=== PATIENT | male | born 1980 | race African-American/Black ===

== ENCOUNTER 2022-09-30 12:05 | Inpatient (IN) | payer OTHER ==
[2022-09-30] MEDS ORDERED: Ketorolac Tromethamine 30 MG/ML VIAL ONE (12:35)
[2022-09-30] MEDS ORDERED: Ondansetron PF 4 MG/2 ML Vial ONE (13:40)
[2022-09-30] MEDS ORDERED: Morphine 4 MG/ML VIAL ONE ×2 (13:40→15:42)
[2022-09-30] MEDS ORDERED: Iopamidol 300 61% 100 ML VIAL FS ONE (14:21)
[2022-09-30 14:26] LABS: #Basophils 0.1 10x3/uL (0.0-0.2); #Eosinphils 0.3 10x3/uL (0.0-0.5); #Monocytes 0.6 10x3/uL (0.0-1.1); #Neutrophils 5.2 10x3/uL (1.5-8.4); %Basophils 0.8 % (0.0-2.0); %Eosinophils 3.6 % (0.0-6.0); %Lymphocytes 27.8 % (18.0-47.0); %Monocytes 6.6 % (0.0-10.0); %Neutrophils 60.9 % (40.0-75.0); Hemoglobin 15.2 g/dL (13.5-17.5); Mean Corpuscular HGB CONC 32.4 g/dL (32.0-36.0); Mean Corpuscular Hemoglobin 25.7 pg (27.0-33.0); Mean Corpuscular Volume 79.4 fl (81.2-95.1); Mean Platelet Volume 10.2 fl (7.4-10.4); Platelet Count 286 10x3/uL (150-450); RBC Distribution Width 14.4 % (11.5-14.5); Red Blood Cell (RBC) Count 5.91 10x6/uL (4.32-5.72); White Blood Cell (WBC) Count 8.6 10x3/uL (3.5-10.5)
[2022-09-30 14:41] LABS: ALT (SGPT) 55 U/L (8-55); AST (SGOT) 30 U/L (5-34); Albumin 4.1 g/dL (3.5-5.0); Alkaline Phosphatase 71 U/L (40-110); Anion Gap 19 mmol/L (10-20); BUN (Urea Nitrogen) 9 mg/dL (8.9-20.6); Bilirubin, Total 0.2 mg/dL (0.2-1.2); Calc. Creatinine Clearance 0 mL/min (70-130); Calcium 9.3 mg/dL (7.8-10.44); Carbon Dioxide 22 mmol/L (22-29); Chloride 104 mmol/L (98-107); Estimated GFR 102; Globulin 3.3 g/dL (2.4-3.5); Glucose 105 mg/dL (70-105); Lipase 35 U/L (8-78); Potassium 4.7 mmol/L (3.5-5.1); Protein, Total 7.4 g/dL (6.0-8.3); Sodium 140 mmol/L (136-145)
[2022-09-30] MEDS ORDERED: Metoclopramide HCl 10 MG/2 ML VIAL IVP PRN (15:39)
[2022-09-30] MEDS ORDERED: Dextrose 5 % And 0.9 % NaCl 1,000 ML IV SCH (16:00)
[2022-09-30 17:24] VITALS: BMI 29.7
[2022-09-30] MEDS ORDERED: Morphine 4 MG/ML VIAL SLOW IVP SCH (18:00)
[2022-09-30] MEDS ORDERED: Pantoprazole 40 MG VIAL IVP SCH (18:00)
[2022-09-30] MEDS: Sodium Chloride 0.9% 1,000 ML IV SCH (18:31)
[2022-09-30 20:19] LABS: Bilirubin Neg (Negative); Blood, Urine Negative (Negative); Glucose, Urine (Dipstick) Normal (Negative); Ketone, Urine Negative (Negative); Leukocyte 25 (Negative); Nitrite Negative (Negative); Protein, Urine (Dipstick) Negative (Neg-Trace); Specific Gravity, Urine 1.005 (1.005-1.030); Urobilinogen Normal mg/dL (Less than 2)
[2022-09-30 20:20] LABS: Clarity Clear (Clear)
[2022-09-30 20:42] LABS: Bacteria/HPF None Seen HPF (None Seen); CAUTI Indications for Culture Pelvic or flank pain; RBC/HPF None Seen HPF (0-3); Squamous Epithelial None Seen HPF (0-3); WBC/HPF None Seen HPF (0-3)
[2022-09-30 20:44] LABS: Urine Culture Reflex No No
[2022-09-30] MEDS ORDERED: Senokot S 8.6-50 MG TAB PO SCH (21:00)
[2022-09-30] MEDS: Ketorolac Tromethamine 30 MG/ML VIAL IVP PRN (21:14)
[2022-09-30] MEDS: Morphine 4 MG/ML VIAL SLOW IVP PRN (23:03)
[2022-10-01] MEDS: Ondansetron PF 4 MG/2 ML Vial IVP PRN ×2 (00:59→21:53)
[2022-10-01] MEDS ORDERED: Morphine 2 MG/ML VIAL SLOW IVP SCH (01:15)
[2022-10-01] MEDS: Sodium Chloride 0.9% 1,000 ML IV SCH ×3 (01:22→17:36)
[2022-10-01] MEDS: Morphine 4 MG/ML VIAL SLOW IVP PRN ×5 (03:01→21:49)
[2022-10-01 05:27] LABS: #Basophils 0.1 10x3/uL (0.0-0.2); #Eosinphils 0.1 10x3/uL (0.0-0.5); #Monocytes 0.6 10x3/uL (0.0-1.1); #Neutrophils 8.7 10x3/uL (1.5-8.4); %Basophils 0.5 % (0.0-2.0); %Eosinophils 0.6 % (0.0-6.0); %Lymphocytes 14.2 % (18.0-47.0); %Monocytes 5.1 % (0.0-10.0); %Neutrophils 79.2 % (40.0-75.0); Hemoglobin 15.8 g/dL (13.5-17.5); Mean Corpuscular HGB CONC 32.4 g/dL (32.0-36.0); Mean Corpuscular Hemoglobin 25.4 pg (27.0-33.0); Mean Corpuscular Volume 78.5 fl (81.2-95.1); Mean Platelet Volume 10.5 fl (7.4-10.4); Platelet Count 317 10x3/uL (150-450); RBC Distribution Width 14.6 % (11.5-14.5); Red Blood Cell (RBC) Count 6.22 10x6/uL (4.32-5.72)
[2022-10-01 05:52] LABS: ALT (SGPT) 46 U/L (8-55); AST (SGOT) 25 U/L (5-34); Albumin 3.9 g/dL (3.5-5.0); Alkaline Phosphatase 75 U/L (40-110); Anion Gap 17 mmol/L (10-20)
[2022-10-01 05:53] LABS: BUN (Urea Nitrogen) 8 mg/dL (8.9-20.6); Bilirubin, Total 0.3 mg/dL (0.2-1.2); Calc. Creatinine Clearance 142 mL/min (70-130); Carbon Dioxide 23 mmol/L (22-29); Chloride 103 mmol/L (98-107); Estimated GFR 98; Globulin 3.3 g/dL (2.4-3.5); Glucose 110 mg/dL (70-105); Potassium 4.7 mmol/L (3.5-5.1); Protein, Total 7.2 g/dL (6.0-8.3); Sodium 138 mmol/L (136-145)
[2022-10-01] MEDS: Ketorolac Tromethamine 30 MG/ML VIAL IVP PRN ×2 (09:20→17:36)
[2022-10-01] MEDS: Pantoprazole 40 MG VIAL IVP SCH (09:33)
[2022-10-02] MEDS: Ketorolac Tromethamine 30 MG/ML VIAL IVP PRN ×3 (00:40→13:11)
[2022-10-02] MEDS: Sodium Chloride 0.9% 1,000 ML IV SCH ×5 (01:48→21:56)
[2022-10-02] MEDS: Morphine 4 MG/ML VIAL SLOW IVP PRN ×4 (03:24→21:56)
[2022-10-02 04:40] LABS: #Basophils 0.1 10x3/uL (0.0-0.2); #Eosinphils 0.2 10x3/uL (0.0-0.5); #Monocytes 0.8 10x3/uL (0.0-1.1); #Neutrophils 5.9 10x3/uL (1.5-8.4); %Basophils 0.6 % (0.0-2.0); %Eosinophils 2.3 % (0.0-6.0); %Lymphocytes 21.3 % (18.0-47.0); %Monocytes 9.3 % (0.0-10.0); %Neutrophils 66.2 % (40.0-75.0); Hemoglobin 15.6 g/dL (13.5-17.5); Mean Corpuscular HGB CONC 32.6 g/dL (32.0-36.0); Mean Corpuscular Hemoglobin 25.4 pg (27.0-33.0); Mean Platelet Volume 10.1 fl (7.4-10.4); Platelet Count 318 10x3/uL (150-450); RBC Distribution Width 13.7 % (11.5-14.5); Red Blood Cell (RBC) Count 6.14 10x6/uL (4.32-5.72); White Blood Cell (WBC) Count 8.8 10x3/uL (3.5-10.5)
[2022-10-02 04:42] LABS: Albumin 3.9 g/dL (3.5-5.0); Anion Gap 14 mmol/L (10-20); BUN (Urea Nitrogen) 10 mg/dL (8.9-20.6); Bilirubin, Total 0.4 mg/dL (0.2-1.2); Calc. Creatinine Clearance 128 mL/min (70-130); Calcium 9.3 mg/dL (7.8-10.44); Carbon Dioxide 26 mmol/L (22-29); Chloride 106 mmol/L (98-107); Estimated GFR 86; Glucose 106 mg/dL (70-105); Potassium 4.1 mmol/L (3.5-5.1); Protein, Total 6.7 g/dL (6.0-8.3); Sodium 142 mmol/L (136-145)
[2022-10-02 04:43] LABS: ALT (SGPT) 35 U/L (8-55); AST (SGOT) 14 U/L (5-34); Alkaline Phosphatase 68 U/L (40-110); Globulin 2.8 g/dL (2.4-3.5)
[2022-10-02] MEDS: Ondansetron PF 4 MG/2 ML Vial IVP PRN ×2 (08:30→17:42)
[2022-10-02] MEDS: Pantoprazole 40 MG VIAL IVP SCH (08:30)
[2022-10-03] MEDS: Morphine 4 MG/ML VIAL SLOW IVP PRN (03:26)
[2022-10-03 04:03] LABS: #Basophils 0.1 10x3/uL (0.0-0.2); #Eosinphils 0.3 10x3/uL (0.0-0.5); #Monocytes 0.9 10x3/uL (0.0-1.1); #Neutrophils 4.2 10x3/uL (1.5-8.4); %Basophils 0.7 % (0.0-2.0); %Eosinophils 3.7 % (0.0-6.0); %Lymphocytes 21.9 % (18.0-47.0); %Monocytes 13.5 % (0.0-10.0); %Neutrophils 60.1 % (40.0-75.0); Hemoglobin 14.4 g/dL (13.5-17.5); Mean Corpuscular HGB CONC 31.7 g/dL (32.0-36.0); Mean Corpuscular Hemoglobin 25.2 pg (27.0-33.0); Mean Corpuscular Volume 79.5 fl (81.2-95.1); Platelet Count 293 10x3/uL (150-450); Red Blood Cell (RBC) Count 5.71 10x6/uL (4.32-5.72)
[2022-10-03 04:08] LABS: ALT (SGPT) 29 U/L (8-55); AST (SGOT) 12 U/L (5-34); Albumin 3.7 g/dL (3.5-5.0); Alkaline Phosphatase 69 U/L (40-110); Anion Gap 15 mmol/L (10-20); BUN (Urea Nitrogen) 11 mg/dL (8.9-20.6); Bilirubin, Total 0.5 mg/dL (0.2-1.2); Calc. Creatinine Clearance 114 mL/min (70-130); Carbon Dioxide 28 mmol/L (22-29); Chloride 107 mmol/L (98-107); Estimated GFR 75; Globulin 2.7 g/dL (2.4-3.5); Glucose 104 mg/dL (70-105); Potassium 4.2 mmol/L (3.5-5.1); Protein, Total 6.4 g/dL (6.0-8.3); Sodium 146 mmol/L (136-145)
[2022-10-03] MEDS: Sodium Chloride 0.9% 1,000 ML IV SCH ×2 (06:27→16:05)
[2022-10-03] MEDS: Pantoprazole 40 MG VIAL IVP SCH (08:12)
[2022-10-03] MEDS: Ketorolac Tromethamine 30 MG/ML VIAL IVP PRN ×2 (09:06→16:04)
[2022-10-03 18:05] VITALS: BP 152/89; TEMP 98
== END 2022-10-03 19:30 | disposition home or self-care (01) | DRG 390 ==
LOC: CSHERS 12:05 → SUATTDRO 12:05 → INTOOBSV 16:22 → CSHTELE 16:22 → OBSVTOIN 10-02 15:58
PROVIDERS: ADMIT Family Medicine; ATTEND Family Medicine
DX: K56.600 Partial intestinal obstruction, unspecified as to cause (principal); Z90.49 Acquired absence of other specified parts of digestive tract; F31.9 Bipolar disorder, unspecified; Z87.891 Personal history of nicotine dependence
CPT/HCPCS: 36415; 71045; 74177; 74250; 80053; 81001; 83690; 85025; 94760; 96372; 96374; 96375; 96376; C9113; G0378; J1650; J1885; J2270; J2272; J2405; J7050; Q9967

== ENCOUNTER 2022-10-07 21:29 | Observation (INO) | payer OTHER ==
[~2022-10-07 21:29] MED LIST: Iopamidol 300 61% 100 ML VIAL FS ONE
[2022-10-07 22:51] LABS: #Basophils 0.1 10x3/uL (0.0-0.2); #Eosinphils 0.2 10x3/uL (0.0-0.5); #Monocytes 0.6 10x3/uL (0.0-1.1); #Neutrophils 7.3 10x3/uL (1.5-8.4); %Basophils 0.9 % (0.0-2.0); %Eosinophils 1.6 % (0.0-6.0); %Lymphocytes 18.3 % (18.0-47.0); %Monocytes 5.8 % (0.0-10.0); %Neutrophils 73.1 % (40.0-75.0); Hemoglobin 15.8 g/dL (13.5-17.5); Mean Corpuscular HGB CONC 33.1 g/dL (32.0-36.0); Mean Corpuscular Hemoglobin 25.7 pg (27.0-33.0); Mean Corpuscular Volume 77.9 fl (81.2-95.1); Platelet Count 326 10x3/uL (150-450); RBC Distribution Width 13.4 % (11.5-14.5); Red Blood Cell (RBC) Count 6.14 10x6/uL (4.32-5.72)
[2022-10-07 23:02] LABS: ALT (SGPT) 32 U/L (8-55); AST (SGOT) 17 U/L (5-34); Albumin 4.6 g/dL (3.5-5.0); Alkaline Phosphatase 88 U/L (40-110); Anion Gap 18 mmol/L (10-20); BUN (Urea Nitrogen) 6 mg/dL (8.9-20.6); Bilirubin, Total 0.3 mg/dL (0.2-1.2); Calc. Creatinine Clearance 0 mL/min (70-130); Calcium 10.1 mg/dL (7.8-10.44); Carbon Dioxide 25 mmol/L (22-29); Chloride 105 mmol/L (98-107); Estimated GFR 75; Globulin 2.8 g/dL (2.4-3.5); Glucose 99 mg/dL (70-105); Potassium 4.2 mmol/L (3.5-5.1); Protein, Total 7.4 g/dL (6.0-8.3); Sodium 144 mmol/L (136-145)
[2022-10-07] MEDS ORDERED: Ketorolac Tromethamine 30 MG/ML VIAL ONE (23:56)
[2022-10-08] MEDS ORDERED: Ondansetron PF 4 MG/2 ML Vial IVP PRN (01:56)
[2022-10-08] MEDS ORDERED: Ketorolac Tromethamine 30 MG/ML VIAL IVP PRN (01:59)
[2022-10-08] MEDS ORDERED: Morphine 2 MG/ML VIAL SLOW IVP PRN (02:17)
[2022-10-08] MEDS: Dextrose 5%-Lactated Ringers 1,000 ML IV SCH ×2 (02:44→09:04)
[2022-10-08 05:20] LABS: Anion Gap 17 mmol/L (10-20); BUN (Urea Nitrogen) 7 mg/dL (8.9-20.6); Calc. Creatinine Clearance 0 mL/min (70-130); Calcium 9.6 mg/dL (7.8-10.44); Carbon Dioxide 23 mmol/L (22-29); Chloride 106 mmol/L (98-107); Estimated GFR 84; Glucose 113 mg/dL (70-105); Potassium 4.1 mmol/L (3.5-5.1); Sodium 142 mmol/L (136-145)
[2022-10-08 05:31] LABS: Magnesium 1.9 mg/dL (1.6-2.6)
[2022-10-08] MEDS ORDERED: Famotidine/PF 20 mg/2ml Vial SLOW IVP SCH (09:00)
[2022-10-08 09:08] VITALS: TEMP 97.9
[2022-10-08 12:54] VITALS: BP 137/92
== END 2022-10-08 14:47 | disposition home or self-care (01) ==
LOC: CSHERS 21:29 → INTOOBSV 10-08 02:13 → CSHTELE 10-08 02:13
PROVIDERS: ADMIT Student in an Organized Health Care Education/Training Program; ATTEND Hospitalist
DX: R10.9 Unspecified abdominal pain (principal); F31.9 Bipolar disorder, unspecified; K56.600 Partial intestinal obstruction, unspecified as to cause; Z90.49 Acquired absence of other specified parts of digestive tract; Z87.891 Personal history of nicotine dependence; F10.90 Alcohol use, unspecified, uncomplicated
CPT/HCPCS: 36415; 74177; 74250; 80048; 80053; 83605; 83690; 83735; 84443; 85025; 96372; 96375; G0378; J1650; J1885; J2405; Q9967; S0028